=== PATIENT | male | born 1980 | race Caucasian/White ===

== ENCOUNTER 2016-12-10 21:20 | Emergency (ER) | payer MEDICAID ==
[~2016-12-10] VITALS: Ht 172.7 cm; Wt 98.0 kg
[2016-12-10 22:13] LABS: HEMOGLOBIN 14.2 g/dL (14.1-18.0); LYMPH # 1.2 K/mm3 (0.7-4.5)
--- NOTE | 2016-12-10 22:13 | Emergency Room Report ---
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 N Clinical Suspician of Infection? N Mental Status: 1 - Regular (Normal Baseline) Sepsis Risk:Possible Sepsis Risk Have you (or family members/close friends) recently traveled outside the [place]? N If Yes, where/when: Have you had exposure to infectious disease within the past month? N TB? Other? Specify: Source patient, RN notes reviewed, family, RN/MD Exam Limitations no limitations Comment This is a 36-year-old male here in the emergency room with an asthma attack after running out of his short-acting beta agonists, approximately 24 hours ago. The patient is also complaining with productive cough, with yellowish phlegm, for the past 24 hours. ALLERGIES Coded Allergies: No Known Drug Allergies (NKDA) (12/10/16) History Medical History General CAD? No Angina: No GA: No Hypertension? No Hyperlipidemia? No CHF? No DVT? No PE? No COPD? No Asthma? Yes Anemia? No GERD? Yes Gastric ulcers? No GI Bleed? No Hernia? No Thyroid Problems? No Hypothyroidism? No CVA? No Seizures? Yes Diabetes? No Renal Insuffiency? Yes End Stage Renal Disease? No UTI? No Stones? No BPH? No GB Disease: No Nephritic Syndrome? No Asplenia? No Hepatitis? No Sickle Cell Disease? No Arthritis? No Migraines? No Cataracts? No Glaucoma? No MRSA? No HIV? No TB? No Anxiety? No Depression? No Cancer? No Immunization Hx Ped.Immunizations UTD No DT/Tetanus Unknown Surgical Hx Previous Surgery?N Social History Smoking Hx Smoker: Never Smoker Tobacco: Yes Type Chew Are you/the child exposed to second-hand smoke: No Alcohol Alcohol: No Review of Systems All Other Systems Reviewed and Negative Respiratory shortness of breath Physical Exam Vital Signs Vital Signs Date Time Temp Pulse Resp B/P Pulse O2 O2 Flow FiO2 Ox Delivery Rate 12/107 85 20 136/90 99 12/10 2201 98.4 93 16 124/73 95 08/27 2132 20 95 12/103 98.4 115 20 95 General Appearance normal appearance, WD/WN, no apparent distress Respiratory Status Yes: trachea midline, chest symmetrical, non tender chest. No: respiratory distress. Lung Sounds bilateral: wheezing. 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 No Comment Upon reevaluation patient is medically stable, medically improved. Results/Orders Laboratory Tests 12/10/162144: Sodium 141, Potassium 3.9, Chloride 105, Carbon Dioxide 28, BUN 16, Creatinine 1.0, Estimated Creat Clear 139, Estimated GFR (MDRD) 84, Glucose 101, Calcium 8.8, Total Bilirubin 0.3, AST 29, ALT 46, Alkaline Phosphatase 76, Total Protein 8.2, Albumin 4.1, Globulin 4.1 H, Albumin/Globulin Ratio 1.0 L, WBC 6.2, RBC 4.92, Hgb 14.2, Hct 42.6, MCV 86.7, RDW 13.9, Plt Count 258, MPV 8.1, Gran % 61.4, Gran # 3.8, Lymphocytes % 20.0, Monocytes % 9.4 H, Eosinophils % 8.6, Basophils % 0.7, Lymphocytes # 1.2, Monocytes # 0.6, Eosinophils # 0.5 H, Basophils # 0.1, PUBS MCHC 33.4, MCH 28.9 Current Medication Orders Sig/Ty Start time Last Medication Dose Route Stop Time Status Admin Amoxicillin/ 500 MG ONCE ONE 12/10 2229 DCD Clavulanate Potassium PO 12/10 2230 Albuterol/Ipratropium 0 .STK-MED ONE 12/10 2149 DC INH Albuterol/Ipratropium 3 ML ONCE ONE 12/10 2144 DC 12/10 INH 12/10 Methylprednisolone 125 MG ONCE ONE 12/10 2144 DC 12/10 Sodium Succinate IV 12/10 Sodium Chloride 10 ML PRN PRN 12/10 2144 DCD IV 12/11 2137 Methylprednisolone 0 .STK-MED ONE 12/11 2143 DC Sodium Succinate .ROUTE Orders Procedure Date/time Status PULSE OXIMETRY REQUEST 12/11 2139 Active RT REQUEST DUONEB 12/11 2139 Active IV SALINE LOCK 12/11 2139 Active CBC WITH AUTO DIFF 12/11 2139 Complete CHEM 12 PROFILE 12/11 2139 Complete XRAY/CT/US XRAY/CT/US XRAY chest XR interpretation by reviewed by me Xray Results no infiltrates, normal heart size, normal lung inflation clint Departure Departure Time of Disposition 2215 Disposition DC Home or Self Care(routine) Clinical Impression Primary Impression: Asthma exacerbation Secondary Impressions: Acute bronchitis Qualifiers: Bronchitis organism: unspecified organism Qualified Code: J20.9 - Acute bronchitis, unspecified Condition STABLE Referrals JOEY ALVARADO (Family): 2 Days-Call Office if not better Patient Instructions DI for Acute Bronchitis, DI for Asthma -- Adult Additional Instructions Please take the medications prescribed as instructed, follow up with PCP if not better in 2-3 days. Discharge Counseling Counseled pt/family regarding diagnosis, test results, medications/RX, home care, follow up needs Comment Please take the medications prescribed as instructed, follow up with PCP if not better in 2-3 days. Prescriptions Current Visit Scripts ALBUTEROL (Ventolin Hfa) 1 PUFF IH Q6H6 #1 POW Ref 5 Amoxicillin/Potassium Clav (Augmentin 875-125 Tablet) 1 EACH PO BID #14 TAB ED Critical Care Critical Care No at 0619
[2016-12-10] MEDS ORDERED: VENTOLIN H0.09 MG/AC IH (22:22)
[2016-12-10] MEDS ORDERED: AUGMENTIN 875-1 EACH PO (22:22)
[2016-12-10 22:27] VITALS: BP 136/90
--- NOTE | 2016-12-11 05:25 | RADIOLOGY REPORT PS360 ---
CHEST(2 VIEWS-NOT PORTABLE) HISTORY: Chest pain, cough COUGH ORDERING PHYSICIAN: Vickey Laird MD PATIENT AGE: 36 years COMPARISON: None available FINDINGS: The cardiomediastinal silhouette and pulmonary vascularity are within normal limits. There is a 6 mm nodular opacity overlying the left upper lobe at the second interspace. There are 2 nodules overlying the left lower lobe at the 6 interspace anteriorly. No lobar consolidation or collapse. No acute bony anomalies. IMPRESSION: 1. No acute finding. 2. Small nodular opacities in the left. The nodule in the upper lobe has somewhat irregular margins. Chest CT may be of further value. Follow-up suggested.
== END 2016-12-10 22:28 | disposition home or self-care (01) ==
LOC: ER 21:20
PROVIDERS: Emergency Medicine
DX: J45.901 Unspecified asthma with (acute) exacerbation (principal); F17.220 Nicotine dependence, chewing tobacco, uncomplicated; J20.9 Acute bronchitis, unspecified; K21.9 Gastro-esophageal reflux disease without esophagitis